=== PATIENT | female | born 1975 | race Asian ===

== ENCOUNTER 2023-07-08 08:12 | Day surgery (SDC) | payer OTHER ==
[~2023-07-08] VITALS: Ht 154.9 cm; Wt 55.3 kg
[2023-07-08] MEDS ORDERED: LIDOCAINE 2% 100 MG/5 ML UJET TP ONE (09:49)
[2023-07-08] MEDS ORDERED: fentaNYL citrate 0.05 MG/ML VIAL ONE (09:49)
[2023-07-08] MEDS ORDERED: MIDAZOLAM 5 MG/5 ML VIAL ONE (10:30)
[2023-07-08] MEDS ORDERED: MIDAZOLAM 5 MG/5 ML VIAL IV ONE (11:25)
[2023-07-08] MEDS ORDERED: fentaNYL citrate 0.05 MG/ML VIAL IVP ONE (11:25)
== END 2023-07-08 11:35 | disposition home or self-care (01) ==
LOC: MDS 08:12 → MMU 09:06 → MDS 11:35
PROVIDERS: ATTEND Internal Medicine Gastroenterology
DX: Z12.11 Encounter for screening for malignant neoplasm of colon (principal); K64.4 Residual hemorrhoidal skin tags
CPT/HCPCS: 45378; J2250; J3010